=== PATIENT | female | born 1965 | race Caucasian/White ===

== ENCOUNTER 2021-02-15 10:00 | Outpatient (CLI) | payer OTHER ==
--- NOTE | 2021-02-16 14:22 | Mammography Report ---
BILATERAL DIGITAL DIAGNOSTIC MAMMOGRAM 3D/2D: 02/15/2021 CLINICAL: Patient returns today to evaluate asymmetries in bilateral breasts. Patient returns for mag nification views of microcalcifications in the right breast. Comparison is made to exams dated: 01/26/2020 ultrasound, 01/26/2020 mammogram, 04/08/2019 mammogram, 11/25 ultrasound, 04/15/2018 mammogram, and 04/10/2018 mammogram - [facility]. There are scattered f ibroglandular elements in both breasts. The multiple bilateral breast masses, previously demonstrated to represent cysts, are all either unch anged or smaller when compared to prior examination. No suspicious mass, calcifications, or other fin dings are seen in either breast. IMPRESSION: BENIGN There is no mammographic evidence of malignancy. A 1 year screening mammogram is recommended. This exam was interpreted at Station ID: [id number]. NOTE: For mammograms, a report in lay terms will be sent to the patient. Approximately 15% of breast malignancies will not be visualized mammographically. In the management of a palpable breast mass, a negative mammogram must not discourage biopsy of a clinically suspicious lesion. Electronically Signed By: See Campos M.D. jr/:02/15/2021 11:06:13 ACR BI-RADS Category 2: Benign Finding(s) 3342F PARENCHYMAL PATTERN: (A) - The breast(s) demonstrate(s) scattered fibroglandular densities. BI-RADS CATEGORY: (2) - 2 RECOMMENDATION: (ANNUAL) - Recommend routine annual screening mammography. [id number] 1 year screening LATERALITY: (B)
== END 2021-02-15 10:01 | disposition home or self-care (01) ==
LOC: DI 10:00
PROVIDERS: ATTEND Nurse Practitioner Family
DX: R92.8 Other abnormal and inconclusive findings on diagnostic imaging of breast (principal)

== ENCOUNTER 2021-07-07 08:00 | Outpatient (CLI) | payer OTHER | END 2021-07-07 23:59 | disposition home or self-care (01) | LOC: LAB.R 08:00 | PROVIDERS: ATTEND Internal Medicine | DX: C20 Malignant neoplasm of rectum (principal) | CPT/HCPCS: 82378 ==